=== PATIENT | male | born 1980 | race African-American/Black ===

== ENCOUNTER 2019-12-09 19:00 | Emergency (ER) | payer BC ==
[2019-12-09 19:50] LABS: Absolute Lymphocytes (CBC) 2.2 K/uL (0.7-4.9); Basophils % 0.6 % (0-1.3); Hematocrit 51.9 % (39.6-49.0); Lymphocytes % 34.5 % (15.3-44.8); RBC Red Blood Cell Count 5.95 M/uL (4.33-5.43)
[2019-12-09 19:51] LABS: Protime INR 1.03
[2019-12-09] MEDS ORDERED: ONDANSETRON 4 MG/2 ML VIAL ONE (19:56)
[2019-12-09] MEDS ORDERED: NA CHLORIDE 0.9% 1,000 ML ONE (19:56)
[2019-12-09] MEDS ORDERED: MORPHINE 4 MG/ML SYR ONE (19:56)
[2019-12-09] MEDS ORDERED: CEFTRIAXONE/SWI 1gm 1 GM/10 ML SYR ONE (19:57)
[2019-12-09 20:05] LABS: Urine Blood NEGATIVE (NEG); Urine Glucose NEGATIVE (NEG); Urine Protein 2+ (NEG); Urine Specific Gravity 1.015 (1.005-1.030); Urine pH >8.5 (5.0-7.0)
--- NOTE | 2019-12-09 20:13 | RAD REPORT ---
EXAM DESCRIPTION: RAD - Chest Single View - 12/09/2019 8:07 pm CLINICAL HISTORY: CHEST PAIN, left-sided chest and abdomen pain COMPARISON: CHEST SINGLE VIEW dated 12/11/2011 TECHNIQUE: AP portable chest image was obtained 12/09/2019 8:07 pm . FINDINGS: Lungs are clear. Heart and vasculature are normal. No measurable pleural effusion and no p neumothorax. No acute bony abnormality seen. No acute aortic findings suspected. IMPRESSION: No acute cardiopulmonary process.
[2019-12-09 20:18] LABS: Bicarbonate 23 mmol/L (21-32); Glucose Level 123 mg/dL (74-106); Potassium 3.5 mmol/L (3.5-5.1); Sodium Level 139 mmol/L (136-145)
[2019-12-09 20:19] LABS: ALT/SGPT 37 U/L (12-78); AST/SGOT 21 U/L (15-37); Albumin 3.8 g/dL (3.4-5.0); Alkaline Phosphatase 73 U/L (45-117); BUN Blood Urea Nitrogen 17 mg/dL (7-18); Bilirubin Direct 0.1 mg/dL (0-0.2); Bilirubin Total 0.4 mg/dL (0.2-1.0); NT PRO-BNP 23 pg/mL (<125); Protein, Total 7.7 g/dL (6.4-8.2); Troponin (Emerg Dept Use Only) < 0.02 ng/mL (0.0-0.045)
--- NOTE | 2019-12-09 20:49 | RAD REPORT ---
EXAM DESCRIPTION: CT - Stone Protocol - 12/09/2019 8:37 pm CLINICAL HISTORY: ?left renal colic, left-sided abdominal and flank pain radiating to the back COMPARISON: No comparisons TECHNIQUE: Axial 5 mm thick images were obtained without oral or IV contrast. The [id number] span s the entirety of the system including uppermost abdomen and lung bases. All CT scans are performed using dose optimization technique as appropriate and may include automated exposure control or mA/KV adjustment according to patient size. FINDINGS: No hydronephrosis is present and no obstructing ureteral calculi. No suspicious renal mass es. Heterogeneity of the left renal parenchyma is present. Correlation is needed with any clinical fi ndings for left-sided pyelonephritis. Isodense masses are not excluded. No urinary bladder suspicious finding. No significant adrenal finding. Imaged portions of the liver, spleen and pancreas show no suspicious findings on non-contrast imaging . No gallbladder or biliary tree abnormality identified. No suspicious bowel findings. No appendicitis findings. No hernia, mass or bulky lymphadenopathy noted. No free air, free fluid or inflammatory stranding. No significant bony abnormality. IMPRESSION: No hydronephrosis. No obstructing or nonobstructing calculi. Left renal parenchyma does appear heterogeneous even on noncontrast imaging. Correlation is needed wi th any clinical or laboratory findings of pyelonephritis. Isodense masses are not excluded on a noncontrast study.
--- NOTE | 2019-12-09 21:29 | EDPHYS ---
Physician Documentation [facility] Name: Jann Marrero Age: 39 yrs Sex: Male : 1980 Arrival Date: 12/09/2019 Time: 19:02 Bed 3 Private MD: ED Physician Suzette Medel HPI: 12/09 19:51 This 39 yrs old Black Male presents to ER via Wheelchair with complaints of Abdominal ma2 Pain, Shortness Of Breath, Chest Pain. 19:51 The patient has shortness of breath at rest. Onset: The symptoms/episode began/occurred ma2 gradually, 2 hour(s) ago. Duration: The symptoms are continuous. Associated signs and symptoms: Pertinent positives: left flank abdominal pain , Pertinent negatives: diaphoresis, fever, nausea, numbness in extremities. Severity of symptoms: At their worst the symptoms were moderate in the emergency department the symptoms are unchanged. The patient has not experienced similar symptoms in the past. Historical: - Allergies: 19:31 No Known Allergies; ca1 - Home Meds: 19:31 losartan oral oral [Active]; ca1 - PMHx: 19:31 Hypertension; ca1 - PSHx: 19:31 Neck Surgery; ca1 - Immunization history:: Adult Immunizations up to date, Flu vaccine is not up to date. - Coronavirus screen:: The patient has NOT traveled to [place], [place], or [place] in the past 14 days. The patient has NOT had contact with known/suspected case of Coronavirus?. - Social history:: Patient/guardian denies using alcohol, street drugs, The patient lives with family, Smoking status: Patient denies any tobacco usage or history of. - Family history:: not pertinent. - Ebola Screening: : Patient negative for fever greater than or equal to 101.5 degrees Fahrenheit, and additional compatible Ebola Virus Disease symptoms Patient denies exposure to infectious person Patient denies travel to an Ebola-affected area in the 21 days before illness onset No symptoms or risks identified at this time. - Hospitalizations: : No recent hospitalization is reported. ROS: 19:51 Constitutional: Negative for fever, chills, and weight loss. ma2 19:51 All other systems are negative. Exam: 19:51 Constitutional: This is a well developed, well nourished patient who is awake, alert, ma2 and in no acute distress. Chest/axilla: Normal chest wall appearance and motion. Nontender with no deformity. No lesions are appreciated. Cardiovascular: Regular rate and rhythm with a normal S1 and S2. No gallops, murmurs, or rubs. Normal PMI, no JVD. No pulse deficits. Respiratory: Lungs have equal breath sounds bilaterally, clear to auscultation and percussion. No rales, rhonchi or wheezes noted. No increased work of breathing, no retractions or nasal flaring. Abdomen/GI: Soft, non-tender, with normal bowel sounds. No distension or tympany. No guarding or rebound. No evidence of tenderness throughout. Back: No spinal tenderness. No costovertebral tenderness. Full range of motion. MS/ Extremity: Pulses equal, no cyanosis. Neurovascular intact. Full, normal range of motion. Neuro: Awake and alert, GCS 15, oriented to person, place, time, and situation. Cranial nerves II-XII grossly intact. Motor strength 5/5 in all extremities. Sensory grossly intact. Cerebellar exam normal. Normal gait. Vital Signs: 19:31 BP 145 / 93; Pulse 92; Resp 18 S; Temp 98(O); Pulse Ox 100% on R/A; Weight 107.5 kg ca1 (R); Height 5 ft. 7 in. (170.18 cm) (R); Pain 10/10; 20:11 BP 135 / 90; Pulse 83; Resp 17 S; Pulse Ox 97% on R/A; Pain 5/10; jd3 21:26 BP 154 / 95; Pulse 75; Resp 17 S; Pulse Ox 100% on R/A; Pain 3/10; jd3 19:31 Body Mass Index 37.12 (107.50 kg, 170.18 cm) ca1 MDM: 19:21 Patient medically screened. ma2 19:51 Differential diagnosis: renal colic, vs pyelonephritis vs uti, patient has no chest ma2 pain or sob, alll his symptoms are in the left flank and radiates to suprapubic. Data reviewed: vital signs, nurses notes. 12/09 19:37 Order name: Basic Metabolic Panel md 12/09 19:37 Order name: CBC with Diff md 12/09 19:37 Order name: LFT's md 12/09 19:37 Order name: Magnesium md 12/09 19:37 Order name: NT PRO-BNP md 12/09 19:37 Order name: PT-INR md 12/09 19:37 Order name: Troponin (emerg Dept Use Only) md 12/09 19:48 Order name: Lipase [facility] 12/09 19:51 Order name: Urine Dipstick--Ancillary (enter results) [facility] 12/09 20:02 Order name: CBC with Automated Diff; Complete Time: 20:37 EDMS 12/09 20:02 Order name: Protime (+INR); Complete Time: 20:37 EDMS 12/09 20:06 Order name: Urine Dipstick-Ancillary; Complete Time: 20:37 EDMS 12/09 20:15 Order name: Lipase; Complete Time: 20:37 EDMS 12/09 20:20 Order name: Basic Metabolic Panel; Complete Time: 20:37 EDMS 12/09 19:37 Order name: EKG; Complete Time: 19:45 md 12/09 19:37 Order name: Cardiac monitoring; Complete Time: 19:38 md 12/09 19:37 Order name: EKG - Nurse/Tech; Complete Time: 19:38 md 12/09 19:37 Order name: IV Saline Lock; Complete Time: 19:38 md 12/09 19:48 Order name: CT Abd/Pelvis - Without Contrast [facility] 12/09 20:20 Order name: Liver (Hepatic) Function; Complete Time: 20:37 EDMS 12/09 20:20 Order name: Troponin (Emerg Dept Use Only); Complete Time: 20:37 EDMS 12/09 20:20 Order name: NT PRO-BNP; Complete Time: 20:37 EDMS 12/09 20:20 Order name: Magnesium; Complete Time: 20:37 EDMS 12/09 20:27 Order name: RAD; Complete Time: 20:37 EDMS 12/09 21:24 Order name: CT [facility] 12/09 19:37 Order name: Labs collected and sent; Complete Time: 19:38 mt 12/09 19:37 Order name: O2 Per Protocol; Complete Time: 19:38 mt 12/09 19:37 Order name: O2 Sat Monitoring; Complete Time: 19:38 mt 12/09 19:46 Order name: Urine Dipstick-Ancillary (obtain specimen); Complete Time: 20:40 mt Administered Medications: 20:05 Drug: morphine 4 mg Route: IVP; Site: left antecubital; jd3 21:28 Follow up: Response: No adverse reaction; RASS: Alert and Calm (0) jd3 20:05 Drug: Zofran 4 mg Route: IVP; Site: left antecubital; jd3 21:05 Follow up: Response: No adverse reaction jd3 20:05 Drug: NS 0.9% 1000 ml Route: IV; Rate: 1 bolus; Site: left antecubital; jd3 21:28 Follow up: Response: No adverse reaction; IV Status: Completed infusion; IV Intake: jd3 1000ml 20:05 Drug: Rocephin 1 grams Route: IV; Rate: calculated rate; Site: left antecubital; jd3 20:30 Follow up: Response: No adverse reaction; IV Status: Completed infusion jd3 Disposition: 12/09/19 21:13 Discharged to Home. Impression: Nonobstructive reflux-associated chronic pyelonephritis. - Condition is Stable. - Discharge Instructions: Pyelonephritis, Adult, [id number]. - Prescriptions for Tylenol- Codeine #3 300-30 mg Oral Tablet - take 2 tablet by ORAL route every 6 hours As needed; 30 tablet. Zofran 4 mg Oral Tablet - take 1 tablet by ORAL route every 12 hours As needed; 20 tablet. Bactrim DS 800- 160 mg Oral Tablet - take 1 tablet by ORAL route every 12 hours for 10 days; 20 tablet. - Work release form, Medication Reconciliation Form, Thank You Letter, Antibiotic Education, Prescription Opioid Use form. - Follow up: Private Physician; When: Tomorrow; Reason: Continuance of care. Signatures: Dispatcher [employer] Yanet Dawkins mt, Jonathon, RN RN jd3 Suzette Medel MD MD ma2 Rhoda Montiel RN RN ca1 Corrections: (The following items were deleted from the chart) 21:29 21:13 12/09/2019 21:13 Discharged to Home. Impression: Nonobstructive reflux-associated jd3 chronic pyelonephritis. Condition is Stable. Prescriptions for Tylenol-Codeine #3 300-30 mg Oral Tablet - take 2 tablet by ORAL route every 6 hours As needed; 30 tablet, Zofran 4 mg Oral Tablet - take 1 tablet by ORAL route every 12 hours As needed; 20 tablet, Flomax 0.4 mg Oral Capsule, Sust. Release 24 hr - take 1 capsule by ORAL route once daily 1/2 hour following the same meal each day; 30 capsule. and Forms are Medication Reconciliation Form, Thank You Letter, Antibiotic Education, Prescription Opioid Use. Follow up: Private Physician; When: Tomorrow; Reason: Continuance of care. ma2
--- NOTE | 2019-12-09 21:29 | ER ---
Nurse's Notes [facility] Name: Jann Marrero Age: 39 yrs Sex: Male : 1980 Arrival Date: 12/09/2019 Time: 19:02 Bed 3 Private MD: Diagnosis: Nonobstructive reflux-associated chronic pyelonephritis Presentation: 12/09 19:10 Presenting complaint: Patient states: L lateral abdominal pain that radiates to the ca1 back. Chest pain with SOB started an hour ago. Transition of care: patient was not received from another setting of care. Onset of symptoms was December 09, 2019. Risk Assessment: Do you want to hurt yourself or someone else? Patient reports no desire to harm self or others. Initial Sepsis Screen: Does the patient meet any 2 criteria? No. Patient's initial sepsis screen is negative. Does the patient have a suspected source of infection? No. Patient's initial sepsis screen is negative. Care prior to arrival: None. 19:10 Method Of Arrival: Wheelchair ca1 19:10 Acuity: BAYLEE 2 ca1 Triage Assessment: 19:32 General: Appears in no apparent distress. uncomfortable, Behavior is agitated, restless.ca1 Historical: - Allergies: 19:31 No Known Allergies; ca1 - Home Meds: 19:31 losartan oral oral [Active]; ca1 - PMHx: 19:31 Hypertension; ca1 - PSHx: 19:31 Neck Surgery; ca1 - Immunization history:: Adult Immunizations up to date, Flu vaccine is not up to date. - Coronavirus screen:: The patient has NOT traveled to [place], [place], or [place] in the past 14 days. The patient has NOT had contact with known/suspected case of Coronavirus?. - Social history:: Patient/guardian denies using alcohol, street drugs, The patient lives with family, Smoking status: Patient denies any tobacco usage or history of. - Family history:: not pertinent. - Ebola Screening: : Patient negative for fever greater than or equal to 101.5 degrees Fahrenheit, and additional compatible Ebola Virus Disease symptoms Patient denies exposure to infectious person Patient denies travel to an Ebola-affected area in the 21 days before illness onset No symptoms or risks identified at this time. - Hospitalizations: : No recent hospitalization is reported. Screenin:41 Abuse screen: Denies threats or abuse. Nutritional screening: No deficits noted. jd3 Tuberculosis screening: No symptoms or risk factors identified. Fall Risk Ambulatory Aid- None/Bed Rest/Nurse Assist (0 pts). Gait- Normal/Bed Rest/Wheelchair (0 pts) Mental Status- Oriented to own ability (0 pts). Total Mabry Fall Scale indicates No Risk (0-24 pts). Assessment: 19:40 General: Appears in no apparent distress. uncomfortable, Behavior is calm, cooperative, jd3 appropriate for age. Pain: Complains of pain in low back area, chest and abdomen Quality of pain is described as sharp, tender. Neuro: Level of Consciousness is awake, alert, obeys commands, Oriented to person, place, time, situation. Cardiovascular: Heart tones S1 S2 present Capillary refill < 3 seconds Patient's skin is warm and dry. Rhythm is regular. Respiratory: Reports shortness of breath at rest Airway is patent Respiratory effort is even, unlabored, Respiratory pattern is regular, symmetrical, Breath sounds are clear bilaterally. Denies cough. GI: Abdomen is round Bowel sounds present X 4 quads. Abd is soft X 4 quads Abdomen is tender to palpation X 4 quads. Reports lower abdominal pain, upper abdominal pain, nausea, Patient currently denies diarrhea, vomiting. : No signs and/or symptoms were reported regarding the genitourinary system. EENT: No signs and/or symptoms were reported regarding the EENT system. Derm: Skin is intact, Skin is dry, Skin is normal, Skin temperature is warm. Musculoskeletal: Circulation, motion, and sensation intact. Range of motion: intact in all extremities. 20:10 Reassessment: Patient appears in no apparent distress at this time. No changes from jd3 previously documented assessment. Patient and/or family updated on plan of care and expected duration. Pain level reassessed. pt reports some decrease in pain, will continue to monitor. 21:26 Reassessment: Patient appears in no apparent distress at this time. Patient and/or jd3 family updated on plan of care and expected duration. Pain level reassessed. Patient is alert, oriented x 3, equal unlabored respirations, skin warm/dry/pink. pt reported understanding of discharge instructions. even and steady gait upon discharge. Patient states feeling better. Vital Signs: 19:31 BP 145 / 93; Pulse 92; Resp 18 S; Temp 98(O); Pulse Ox 100% on R/A; Weight 107.5 kg ca1 (R); Height 5 ft. 7 in. (170.18 cm) (R); Pain 10/10; 20:11 BP 135 / 90; Pulse 83; Resp 17 S; Pulse Ox 97% on R/A; Pain 5/10; jd3 21:26 BP 154 / 95; Pulse 75; Resp 17 S; Pulse Ox 100% on R/A; Pain 3/10; jd3 19:31 Body Mass Index 37.12 (107.50 kg, 170.18 cm) ca1 ED Course: 19:02 Patient arrived in ED. rg4 19:21 Suzette Medel MD is Attending Physician. ma2 19:30 Triage completed. ca1 19:31 Michael Yarbrough RN is Primary Nurse. jd3 19:31 Arm band placed on right wrist. ca1 19:37 Inserted saline lock: 20 gauge in left antecubital area, using aseptic technique. Blood mt collected. 19:42 Patient has correct armband on for positive identification. Bed in low position. Call jd3 light in reach. Side rails up X 1. Adult w/ patient. 21:27 No provider procedures requiring assistance completed. IV discontinued, intact, jd3 bleeding controlled, No redness/swelling at site. Pressure dressing applied. Administered Medications: 20:05 Drug: morphine 4 mg Route: IVP; Site: left antecubital; jd3 21:28 Follow up: Response: No adverse reaction; RASS: Alert and Calm (0) jd3 20:05 Drug: Zofran 4 mg Route: IVP; Site: left antecubital; jd3 21:05 Follow up: Response: No adverse reaction jd3 20:05 Drug: NS 0.9% 1000 ml Route: IV; Rate: 1 bolus; Site: left antecubital; jd3 21:28 Follow up: Response: No adverse reaction; IV Status: Completed infusion; IV Intake: jd3 1000ml 20:05 Drug: Rocephin 1 grams Route: IV; Rate: calculated rate; Site: left antecubital; jd3 20:30 Follow up: Response: No adverse reaction; IV Status: Completed infusion jd3 Intake: 21:28 IV: 1000ml; Total: 1000ml. jd3 Outcome: 21:13 Discharge ordered by . ma2 21:27 Discharged to home ambulatory, with family. jd3 21:27 Condition: stable 21:27 Discharge instructions given to patient, family, Instructed on discharge instructions, follow up and referral plans. medication usage, Demonstrated understanding of instructions, follow-up care, medications, Prescriptions given X 3. 21:29 Patient left the ED. jd3 Signatures: Ronda David rg4 Yanet Odonnell mt, Jonathon, RN RN jd3 Suzette Medel MD MD ma2 Rhoda Montiel RN RN ca1 Corrections: (The following items were deleted from the chart) 19:32 19:10 Presenting complaint: Patient states: L lateral abdominal pain that radiates to ca1 the back. Chest pain with SOB started an hour ago ca1 21: 20:11 BP 135 / 90; Pulse 83bpm; Resp 17bpm; Spontaneous; Pulse Ox 97% RA; Pain 8/10; [id number] 21:28 21:05 Response: No adverse reaction jd3 jd3
--- NOTE | 2019-12-10 08:47 | EKG ---
Test Date: 2019-12-09 Test Time: 19:21:49 Tobacco Scrap Sifter: JOSE MEASUREMENT RESULTS: Intervals: Rate: 80 MS: 166 QRSD: 84 QT: 362 QTc: 417 Gautier: P: 53 MS: 166 QRS: 37 T: 36 INTERPRETIVE STATEMENTS: Normal sinus rhythm Nonspecific T wave abnormality Abnormal ECG Compared to ECG 12/09/2019 19:20:56 No significant changes Electronically Signed On 12-10-19 08:46:25 SEWING SUPERVISOR by Rui Art
[2019-12-11 22:17] VITALS: TEMP 98
[2019-12-11 22:20] VITALS: BP 154/95; O2SAT 100
== END 2019-12-09 21:29 | disposition home or self-care (01) ==
LOC: ER 19:00
DX: N11.0 Nonobstructive reflux-associated chronic pyelonephritis (principal); I10 Essential (primary) hypertension
CPT/HCPCS: 96365; 96361; 93005; 85025; 80048; 36415; 83735; 85610; 80076; 81003; 84484; 83690; 83880; 76377; 74176; 71045; 96375; 99284; J0696; J7030; J2405